=== PATIENT | female | born 1990 ===

== ENCOUNTER 2020-07-25 22:57 | Observation (INO) ==
[2020-07-25] MEDS ORDERED: SODIUM CHLORIDE 0.9% 1,000 ML IV STA (23:23)
[2020-07-25] MEDS ORDERED: HYDROmorphone 2 MG/1 ML VIAL IV STA (23:23)
[2020-07-25] MEDS ORDERED: ONDANSETRON 4 MG/2 ML VIAL IV STA (23:23)
[2020-07-25 23:31] LABS: Basophils # 0.1 10*3/uL (0.0-0.2); Basophils % 0.4 % (0.0-0.8); Eosinophils # 0.2 10*3/uL (0.0-0.87); Eosinophils % 1.2 % (0.00-10.9); Hematocrit 42.4 VOL% (35.7-47.0); Hemoglobin 14.4 GM/DL (12.0-16.0); Immature Granulocytes % 0.3 %; Immature Granulocytes Absolute 0.06 #; Lymphocytes # 2.3 10*3/uL (1.4-4.0); Lymphocytes % 11.8 % (21.3-54.2); Mean Corpuscular Volume 89.6 FL (87-102); Mean Platelet Volume 10.9 FL (9.6-12.0); Monocytes % 5.8 % (1.7-12.7); Neutrophils % 80.5 % (38.7-73.9); Platelet Count 224 T/CUMM (130-400); Red Blood Count 4.73 MC/CUMM (3.8-5.5); Red Cell Distribution Width 12.8 % (9.3-17.3); White Blood Count 19.6 T/CUMM (4-12)
[2020-07-25 23:34] LABS: Amorphous Crystals,Urine Occasional /HPF (Few); Bilirubin,Urine Negative (Negative); Blood, Urine Negative (Negative); Glucose,Urine (UA) Negative (Negative); Ketones,Urine Negative (Negative); Mucus,Urine Occasional /LPF (Occasional); Nitrite,Urine Negative (Negative); Protein,Urine Negative; RBC,Urine 2 /HPF (0-4); Squamous Epithelial Cell,Urine Occasional /HPF (0-10); Urine Appearance Slightly Hazy (Clear); Urine Color Yellow (Yellow); Urine Specific Gravity 1.023 (1.001-1.035); Urine Urobilinogen < 2.0 EU/DL (0.2-1.0); WBC,Urine 2 /HPF (0-6)
[2020-07-25 23:48] LABS: Alanine Aminotransferase 15 U/L (13-56); Albumin 4.1 G/DL (3.4-5.0); Alkaline Phosphatase 81 U/L (45-117); Amylase 78 U/L (25-115); Aspartate Amino Transferase 12 U/L (0-37); Bilirubin,Total < 0.39 MG/DL (0.2-1.0); Blood Urea Nitrogen 18 MG/DL (7-18); Calcium 9.2 MG/DL (8.5-10.1); Carbon Dioxide 26 MMOL/L (21-32); Estimated Glom Filtration Rate 86 ML/MIN; Glucose 95 MG/DL (74-106); Osmolality,Calculated 276.7 MOS/KG (273-304); Potassium 3.8 MMOL/L (3.5-5.1); Sodium 138 MMOL/L (136-145); Total Protein 7.7 G/DL (6.4-8.2)
[2020-07-26] MEDS ORDERED: PIPERACILLIN/TAZOBACTAM 3,375 MG in SODIUM CHLORIDE 0.9% 100 ML IV STA (00:29)
[2020-07-26] MEDS ORDERED: ACETAMINOPHEN 325 MG TABLET PO PRN (01:26)
[2020-07-26] MEDS ORDERED: HYDROmorphone 2 MG/1 ML VIAL IV PRN ×3 (01:26→10:33)
[2020-07-26] MEDS ORDERED: ONDANSETRON 4 MG/2 ML VIAL IV PRN ×3 (01:26→10:33)
[2020-07-26] MEDS: SODIUM CHLORIDE 0.9% 1,000 ML IV SCH ×2 (02:17→11:19)
[2020-07-26] MEDS ORDERED: LIDOCAINE 1%/EPI INJ 20 ML VIAL ONE (06:58)
[2020-07-26] MEDS ORDERED: BUPIVACAINE MPF 0.25% 30 ML VIAL ONE (06:58)
[2020-07-26] MEDS ORDERED: SUCCINYLCHOLINE 200 MG/10 ML VIAL ONE (07:34)
[2020-07-26] MEDS ORDERED: ROCURONIUM 50 MG/5 ML VIAL IV ONE (07:34)
[2020-07-26] MEDS ORDERED: ONDANSETRON 4 MG/2 ML VIAL ONE (07:34)
[2020-07-26] MEDS ORDERED: DEXAMETHASONE 4 MG/1 ML VIAL ONE (07:34)
[2020-07-26] MEDS ORDERED: propofoL 200 MG/20 ML VIAL IV ONE (07:34)
[2020-07-26] MEDS ORDERED: LIDOCAINE 2% 5 ML VIAL ONE (07:34)
[2020-07-26] MEDS ORDERED: MIDAZOLAM 2 MG/2 ML VIAL ONE (07:35)
[2020-07-26] MEDS ORDERED: fentaNYL 100 MCG/2 ML VIAL ONE ×2 (07:35→08:46)
[2020-07-26] MEDS ORDERED: ePHEDrine 50 MG/ML VIAL ONE (08:23)
[2020-07-26] MEDS ORDERED: TISSUE ADHESIVE 1 EACH APPLICATOR TOP ONE (08:44)
[2020-07-26] MEDS ORDERED: SEVOFLURANE 1 UNIT/15 MINUTE INH ONE (08:45)
[2020-07-26] MEDS ORDERED: PIPERACILLIN/TAZOBACTAM 3,375 MG in SODIUM CHLORIDE 0.9% 100 ML IV SCH (09:00)
[2020-07-26] MEDS ORDERED: PANTOPRAZOLE 40 MG VIAL IV SCH (09:00)
[2020-07-26 10:32] LABS: Basophils % 0.2 % (0.0-0.8); Eosinophils # 0.1 10*3/uL (0.0-0.87); Eosinophils % 0.6 % (0.00-10.9); Hematocrit 39.6 VOL% (35.7-47.0); Hemoglobin 13.4 GM/DL (12.0-16.0); Immature Granulocytes % 0.4 %; Immature Granulocytes Absolute 0.05 #; Lymphocytes # 1.3 10*3/uL (1.4-4.0); Lymphocytes % 10.5 % (21.3-54.2); Mean Corpuscular HGB Conc 33.8 GM/DL (32-36); Monocytes % 2.8 % (1.7-12.7); Neutrophils % 85.5 % (38.7-73.9); Platelet Count 179 T/CUMM (130-400); Red Blood Count 4.35 MC/CUMM (3.8-5.5); Red Cell Distribution Width 12.7 % (9.3-17.3); White Blood Count 12.7 T/CUMM (4-12)
[2020-07-26] MEDS ORDERED: KETOROLAC 15 MG/1 ML VIAL IV PRN (10:33)
[2020-07-26 10:48] LABS: Albumin 3.3 G/DL (3.4-5.0); Bilirubin,Total 0.4 MG/DL (0.2-1.0); Calcium 7.9 MG/DL (8.5-10.1); Osmolality,Calculated 275.5 MOS/KG (273-304); Potassium 3.7 MMOL/L (3.5-5.1); Total Protein 6.4 G/DL (6.4-8.2)
[2020-07-26 11:48] VITALS: BP 105/56
== END 2020-07-26 16:41 | disposition home or self-care (01) ==
LOC: N.ED 22:57 → N.EDINP 22:57 → N.3E 07-26 01:30
PROVIDERS: ADMIT Surgery; ATTEND Surgery